=== PATIENT | male | born 1950 | race Caucasian/White ===

== ENCOUNTER 2022-03-29 14:54 | Outpatient (CLI) | payer OTHER, SELFPAY ==
--- NOTE | 2022-03-29 15:01 | MR_ITS ---
WS: [id number] MRI BRAIN WITH HIGH-RESOLUTION IMAGING THROUGH THE INTERNAL AUDITORY CANALS WITHOUT CONTRAST HISTORY: SENSORINEURAL HEARING LOSS BILATERAL COMPARISON: None available. TECHNIQUE: Multiplanar, multisequence imaging is performed through the brain. Additional 3 mm imaging performed in multiple planes through the internal auditory canal. Patient refused contrast. No acute intracranial hemorrhage, midline shift, edema or mass effect. Diffusion-weighted images are normal. Numerous scattered T2 and FLAIR signal hyperintensities through out the white matter in both the periventricular and subcortical distribution. Slightly greater white matter small vessel ischemic disease on the RIGHT. No prior infarct. Ventricles and extra-axial spaces are normal. No inferior displacement of cerebellar tonsils. Clivus and pituitary gland are normal. Internal and external auditory canals: Unremarkable. Cranial nerves VII and VIII complexes: No displacement or signal abnormality. Patient refused IV cont rast. Cerebellopontine angles and the 7th and 8th cranial nerve complexes are symmetric. Cerebellopontine angles: Normal limits unenhanced exam. Paranasal sinuses: Mild mucoperiosteal thickening throughout the frontal and frontal ethmoid recesses . No air-fluid levels. Mastoid air cells: Normal. Calvarium and scalp: Normal. As visualized no abnormalities. Flow voids are normal. MR/MR iac's wo con [id number] IMPRESSION: 1. No signal abnormalities noted at the cerebellopontine angles or involving t he 7th and 8th cranial nerve complexes. Patient refused IV contrast for this ex amination. 2. Moderate small vessel ischemic changes throughout the white matter, RIGHT g reater than LEFT. 3. No prior infarct. 4. Mild frontal and frontal ethmoid recess mucoperiosteal thickening.
== END 2022-03-29 14:55 | disposition home or self-care (01) ==
LOC: RAD 14:59
PROVIDERS: PCP Family Medicine; Visit Provider Specialist
DX: H90.3 Sensorineural hearing loss, bilateral (principal)
CPT/HCPCS: 70551

== ENCOUNTER → 2022-09-07 13:47 | Outpatient (BNVA) | payer OTHER, SELFPAY | PROVIDERS: PCP Family Medicine; Visit Provider Internal Medicine Cardiovascular Disease | DX: I10 Essential (primary) hypertension (principal); R94.31 Abnormal electrocardiogram [ECG] [EKG]; R07.89 Other chest pain; R06.02 Shortness of breath; R00.2 Palpitations | CPT/HCPCS: 99214 ==

== ENCOUNTER 2022-10-25 10:39 | Outpatient (CLI) | payer OTHER, SELFPAY ==
--- NOTE | 2022-10-25 11:00 | USCV_ITS ---
Chip Ej Age: 72 Gender: M : 1950 Exam Date: 10/25/2022 10:51 Ordering Phys: Lori Mcgovern MD ([email or web address]) Technologist: Felicitas Toro Exam Location: [facility] [place] Indication: CP, SOB, CHF BP: 149 / 92 HR: 55 Rhythm: Sinus Technical Quality: Adequate MEASUREMENTS (Male / Female) Normal Values 2D ECHO LV Diastolic Diameter PLAX 3.8 cm 4.2 - 5.9 / 3.9 - 5.3 cm LV Systolic Diameter PLAX 3.3 cm IVS Diastolic Thickness 1.2 cm 0.6 - 1.0 / 0.6 - 0.9 cm IVS Systolic Thickness 1.3 cm LVPW Diastolic Thickness 1.1 cm 0.6 - 1.0 / 0.6 - 0.9 cm LVPW Systolic Thickness 1.5 cm LVOT Diameter 1.4 cm LV Ejection Fraction 2D Teich 31.1 % LV Ejection Fraction MOD 2C 50.5 % LV Ejection Fraction 2C AL 53.1 % LA Diameter 3.1 cm LA Width 3.6 cm LA Height 4.2 cm RA Width 3.8 cm RA Height 4.6 cm Aorta at Sinotubular Diameter 3.3 cm IVC Diameter 1.6 cm M-MODE MV E Point Septal Separation 1.3 cm DOPPLER AV Peak Velocity 140.0 cm/s LVOT Peak Velocity 97.0 cm/s AV Area Cont Eq vti 1.0 cm squared AV Area Cont Eq pk 1.1 cm squared MV Peak Velocity 69.0 cm/s MV Area PHT 3.1 cm squared Mitral E to A Ratio 1.0 MV E' Velocity 31.0 cm/s Mitral E to MV E' Ratio 4.9 Mitral E to LV E' Lateral Ratio 3.8 Mitral E to LV E' Septal Ratio 6.9 PV Peak Velocity 79.0 cm/s RV Acceleration Time 0.1 s RV Ejection Time 0.3 s RV AcT/ET 0.3 FINDINGS Left Ventricle Normal left ventricular size and systolic function, EF 56 %. No regional wall motion abnormalities. Grade I/IV diastolic dysfunction (abnormal relaxation filling pattern), normal to mildly elevated filling pressures. Right Ventricle The right ventricle is normal in size and function. Right Atrium The right atrium is normal in size. Left Atrium The left atrium is normal in size. Mitral Valve No gross abnormalities noted Aortic Valve Thickened aortic valve. Tricuspid Valve No gross abnormalities noted Pulmonic Valve No gross abnormalities noted Pericardium Normal pericardium without effusion. Aorta Normal ascending aorta dimension. IVC The inferior vena cava appears normal. CONCLUSIONS Normal left ventricular size and systolic function, EF 56 %. No regional wall motion abnormalities. Grade I/IV diastolic dysfunction (abnormal relaxation filling pattern), normal to mildly elevated filling pressures. Thickened aortic valve. Normal cardiac chamber sizes. No significant valvular abnormalities. There is no pericardial effusion. There are no intracardiac masses. No similar previous studies are available for comparison Dr Lori Mcgovern MD FAC (Electronically Signed) Final Date: 25 October 2022 18:06 S
== END 2022-10-25 10:40 | disposition home or self-care (01) ==
PROVIDERS: PCP Family Medicine; Visit Provider Internal Medicine Cardiovascular Disease
DX: I35.8 Other nonrheumatic aortic valve disorders (principal); R06.09 Other forms of dyspnea
CPT/HCPCS: 93306

== ENCOUNTER → 2022-11-14 10:57 | Outpatient (BNVA) | payer OTHER, SELFPAY | PROVIDERS: PCP Family Medicine; Visit Provider Nurse Practitioner Family | DX: I10 Essential (primary) hypertension (principal); R06.02 Shortness of breath | CPT/HCPCS: 99214 ==

== ENCOUNTER 2022-12-11 09:07 | Outpatient (CLI) | payer OTHER, SELFPAY ==
--- NOTE | 2022-12-11 | ECG_ITS ---
[facility] Test Date: 2022-12-11 Pat Name: Ej Saunders Department: Room: Gender: Male Electrical Automation Engineer: Bridgette LottNavdeep : 1950 Requested By: Lori Mcgovern Order Number: [id number] Adonis MD: Gopi Kahn M.D. Interpretive Statements NAME OF STUDY: LEXISCAN SESTAMIBI STRESS TEST, patient unable to meet target HRon Exercise Mibi INDICATION: [UAP, ] Procedure: At the baseline, the blood pressure was 147/82 mmHg with a heart rate of 93 bpm. The electrocardiogram showed normal sinus rhythm, normal axis with normal ST and T's. The Lexiscan was infused over a period of 20 seconds. A total of 0.4 mg of Lexiscan was infused. The stress phase was continued for a total of 5 minutes. Heart rate was at the end of stress phase was 108 bpm and a blood pressure of 108/81 mmHg. The EKG at the peak infusion revealed normal sinus rhythm with no significant ST-T wave changes. Patient had frequent PVCs. Sestamibi was injected 20 seconds after the Lexiscan infusion. Blood pressure at the end of recovery phase was 133/80 mmHg with a heart rate of 89 bpm. Conclusion: 1. Normal EKG response to Lexiscan infusion 2. No Lexiscan induced chest pain. Frequent PVCs were noted on stress. 3. Normal blood pressure and heart rate response. 4. Sestamibi/sestamibi perfusion scan pending; see separate report. Electronically Signed On 01-06-2023 22:53:45 HOSPITAL TELEVISION RENTAL CLERK by Gopi Kahn M.D. [id number]
[2022-12-11 09:27] VITALS: BMI 22.1
--- NOTE | 2022-12-11 09:28 | NMCV_ITS ---
NM ludmila perf SPECT r/s* [id number] Ej Saunders Age: 72 Gender: M : 1950 Exam Date: 12/11/2022 10:23 Ordering Phys: Lori Mcgovern MD ([email or web address]) Technologist: JEAN PIERRE Guevara Exam Location: [facility] Indications: SHORTNESS OF BREATH STRESS TEST Please see separate stress test report in [facility] for full findings IMAGE PROTOCOL Rest/Stress 1 Lexiscan Day Radiopharmaceutical Dose (mCi) Administration Site Administered by Rest: Tc-99m 10.8 IV JEAN PIERRE Billy Sestamibi Stress:Tc-99m 32.9 IV JEAN PIERRE Billy Sestamibi Rest: 11-Dec-2022 60 Discovery 630 Stress: 11-Dec-2022 30 Discovery 630 0.4mg Lexiscan. Images obtained in supine and prone position. SPECT RESULTS Technical Quality: Excellent Raw Data Analysis: Normal Image Corrections: No attenuation or motion correction applied Summed Stress Score: 11 Summed Rest Score: 9 Summed Difference Score: 4 PERFUSION FINDINGS There is modereate sized, fixed perfusion defect noted in the apical and apical anterior wall. This is consistent with moderate sized prior infarct in the LAD territory. There is a large sized partially reversible, perfusion defect noted in the apical lateral and inferolateral anderson. This shows large area of prior infarct in the left circumflex artery territory with significant area of shant-infarct ischemia. FUNCTIONAL RESULTS (calculated via Gated SPECT) Stress Image LV EF (%): 70 Stress EDV (mL):103 TID: 1.23 Stress ESV (mL):31 FUNCTIONAL FINDINGS: There is normal left ventricular systolic function. Elevated TID ratio IMPRESSIONS 1. Abnormal myocardial perfusion imaging with medium sized area of prior infarct in the LAD territory. 2. Large area of prior infarct with significant area of shant-infarct ischemia in the left circumflex area territory. 3. LV systolic function is normal 4. Elevated TID ratio that can be secondary to subendocardial ischemia vs multivessel coronary artery disease Gopi Kahn MD (Electronically Signed) Final Date: 13 December 2022 17:11 S
[2022-12-11] MEDS: regadenoson 0.4 Mg/5 ml Syringe IVP (11:13)
[2022-12-11] MEDS: aminophylline 25 mg/mL SDV 10 mL IVP (11:17)
[2022-12-11 11:25] VITALS: BP 133/80; PULSE 92
== END 2022-12-11 09:08 | disposition home or self-care (01) ==
PROVIDERS: PCP Family Medicine; Visit Provider Internal Medicine Cardiovascular Disease
DX: R06.02 Shortness of breath (principal); I25.9 Chronic ischemic heart disease, unspecified
CPT/HCPCS: 36415; 78452; 96374; 96375; A9500; J0280; J2785

== ENCOUNTER → 2023-01-15 12:00 | Outpatient (BNVA) | payer OTHER, SELFPAY | PROVIDERS: PCP Family Medicine; Visit Provider Internal Medicine Cardiovascular Disease | DX: I10 Essential (primary) hypertension (principal); R93.1 Abnormal findings on diagnostic imaging of heart and coronary circulation; E78.5 Hyperlipidemia, unspecified; R00.2 Palpitations; R06.02 Shortness of breath | CPT/HCPCS: 36415; 80061; 80076; 99214 ==

== ENCOUNTER → 2023-03-28 08:26 | Outpatient (BNVA) | payer OTHER, SELFPAY | PROVIDERS: PCP Family Medicine; Referring Provider Family Medicine; Visit Provider Orthopaedic Surgery | DX: S46.912A Strain of unspecified muscle, fascia and tendon at shoulder and upper arm level, left arm, initial encounter (principal); X50.9XXA Other and unspecified overexertion or strenuous movements or postures, initial encounter | CPT/HCPCS: 73030; 99203 ==

== ENCOUNTER 2023-04-06 14:51 | Outpatient (CLI) | payer OTHER, SELFPAY ==
--- NOTE | 2023-04-06 15:15 | MR_ITS ---
WS: [id number] MRI LEFT SHOULDER HISTORY: pain COMPARISON: Radiograph 03/28/2023 TECHNIQUE: Multiplanar sequences of the shoulder joint are submitted. Moderate AC joint arthritis. Mild encroachment upon the supraspinatus tendon. Downsloping of the acro mion with severe subacromial impingement contacting the humeral head. Small subacromial and subdeltoi d bursal fluid distention. No os acromion. Normal biceps tendon. Complete tear of the supraspinatus tendon over the superior humeral head tear extends over a width of 8.60 m. Supraspinatus tendon is retracted to the superior medial humeral head. High riding humeral h ead abuts the undersurface of the acromion. Moderate atrophy of the supraspinatus muscle. Subscapular is tendon is intact although there is tendinopathy distally. Infraspinatus tendon appears intact. Moderate-sized joint effusion with a few small loose bodies within the effusion. Focal tear involving the anterior labrum. MR/MR shoulder LT con* [id number] IMPRESSION: 1. Complete tear supraspinatus tendon with retraction to the superior humeral head. Additional tendinopathy within the tendon. 2. Severe subacromial impingement abutting the humeral head at the site of the supraspinatus tendon tear. 3. Moderate supraspinatus muscle atrophy. 4. Mild distal subscapularis tendinopathy. 5. Moderate joint effusion with a few small loose bodies. 6. Mild AC joint arthritis.
== END 2023-04-06 14:52 | disposition home or self-care (01) ==
LOC: RAD 14:53
PROVIDERS: PCP Family Medicine; Visit Provider Orthopaedic Surgery
DX: M75.122 Complete rotator cuff tear or rupture of left shoulder, not specified as traumatic (principal); M62.512 Muscle wasting and atrophy, not elsewhere classified, left shoulder; M67.814 Other specified disorders of tendon, left shoulder; M25.412 Effusion, left shoulder; M19.012 Primary osteoarthritis, left shoulder
CPT/HCPCS: 73221

== ENCOUNTER → 2023-04-24 15:50 | Outpatient (BNVA) | payer OTHER, SELFPAY | PROVIDERS: PCP Family Medicine; Visit Provider Orthopaedic Surgery | DX: X50.9XXA Other and unspecified overexertion or strenuous movements or postures, initial encounter (principal); Y93.B2 Activity, push-ups, pull-ups, sit-ups; M75.102 Unspecified rotator cuff tear or rupture of left shoulder, not specified as traumatic; S46.912A Strain of unspecified muscle, fascia and tendon at shoulder and upper arm level, left arm, initial encounter | CPT/HCPCS: 99213 ==

== ENCOUNTER 2023-05-03 07:31 | Day surgery (SDC) | payer OTHER, SELFPAY ==
[2023-05-02 15:04] VITALS: BMI 22.1
[2023-05-03] VITALS (10 sets, daily range): BP systolic 97–133; BP diastolic 60–84; PULSE 53–61; RESP 16–18; TEMP 36.1–36.4; O2SAT 92–100
[2023-05-03] MEDS: sodium chloride 0.9% 1,000 ML 30 ML IV (08:06)
[2023-05-03] MEDS: gabapentin 300 mg Capsule PO (08:07)
[2023-05-03] MEDS: CELEcoxib 200 mg Capsule 400 MG PO (08:07)
[2023-05-03] MEDS: acetaminophen 500 mg Tablet 1000 MG PO (08:09)
[2023-05-03] MEDS: oxyCODONE 20 mg ER (12 HR) Tablet PO (08:10)
--- NOTE | 2023-05-03 08:46 | W.PM.OPSUD ---
Surgery/Procedure H&P Update DATE OF PROCEDURE: May 03, 2023 DATE H&P PERFORMED: 04/24/23 H&P UPDATE INFORMATION: I have reviewed H&P completed within last 30 days PREOP DIAGNOSIS: Rotator cuff tear left shoulder PLANNED PROCEDURE: Operation Date: 05/03/23 09:00 Proposed Procedures p arthroscopic left rotator cuff repair/ 06562,M75.102(Left) - Edmond Bird MD s Shoulder Arthroscopy(Left) - Edmond Bird MD
[2023-05-03] MEDS: ceFAZolin 2,000 MG in sodium chloride 0.9% (plus) 50 ML 100 MG IV (09:07)
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
--- NOTE | 2023-05-03 11:05 | P.OP_ITS ---
Operative Report Date of procedure: May 03, 2023 Pre-op diagnosis: Preop Diagnosis Rotator cuff tear and impingement left shoulder Post-op diagnosis: same Procedure done: Arthroscopic repair left rotator cuff, arthroscopic left subacromial decompression Implants: Crane and Nephew Helicoil 4.5 mm anchors x2 Pathology: none sent Surgeon: Edmond Bird Forming Machine Tender: Toan Hsieh Forming Machine Tender: The event marketing assistant was involved with critical portions of the case including manipulation and positioning of the patient. He assisted with the utilization of arthroscopic instruments of multiple portals and repair of this large rotator cuff tear. He provided closure of the wounds and applied postoperative immobilizer Anesthesia: General and Nerve Block (Interscalene) Estimated blood loss (mL): 10 Complications: None Findings: The patient had a very large delaminating tear of his right rotator which was approximately 2-1/2 cm from anterior to posterior with extension medial to the level of the glenoid. There is delamination of a superior and inferior flap of tissue medially. Overall rotator cuff tissue was reasonable. Bone quality was excellent. Additional spurring of the acromion, type II was identified. His biceps tendon was intact and healthy. No chondromalacia was identified over the humeral head or glenoid Condition: stable Disposition: PACU Brief History: The patient is a 73-year-old male who developed acute onset pain in his anterior shoulder 6 weeks ago while attempting to push himself up from the ground while working on his car. He had weakness of his rotator cuff suggestive of tearing which was confirmed on an MRI. He was taken to the operating room for repair of this traumatic tear to improve pain and function Procedure: The patient was taken to the operating room after he was given a interscalene block. He was given 2 g of Ancef. He was prepped and draped in the beachchair position with his left arm in 15 pounds of traction. A timeout was performed. The patient's shoulder was initially entered through a portal 2 cm inferior and medial to the posterior corner of the acromion. A scope cannula and trocar were driven in to the subacromial space. A lateral working portal was opened up with a scalpel blade. The glenohumeral arthroscopy could be performed through the cuff tear. No chondromalacia was then applied to the humeral head or glenoid. The biceps tendon appeared to be intact. The scope was then redirected to the subacromial space. A anterior working portal was identified with a spinal needle and opened up an 8 mm inflow cannula placed anteriorly. Additional cannula was placed through the lateral portal. The Crane and Nephew Werewolf cautery was used to remove bursal tissue and outlined the extent of the tear. Similarly, the leading edge of the acromion was outlined. Through the lateral portal a 5.5 mm acromionizer was introduced and approximately 5 mm of anterior inferior acromion removed to make room for the repair. Attention was then focused on the rotator cuff. The most medial portion of the tear seem to be more of a delaminating pattern. With a U-shaped split at the apex of all of the most superficial cuff and a more retracted crescent type inferior cuff. At a point just lateral to the repair a Crane and [employer] FirstPass suture passer was used to the anterior portal to shuttle a tape through the posterior U-shaped superior flap. The inferior suture was then retrieved through the anterior portal and that same suture passer used to pass it through the lateral edge of the inferior flap. A sharp BirdBeak suture retriever was then passed through the anterior superior U-shaped tissue and retrieved out through the anterior portal. This suture was secured to the lateral portal closing the apex of the tear and an inferior delaminated portion of the tear together. The Crane and Nephew FirstPass suture passer was then used to shuttle a second tape through the posterior rotator cuff approximately a centimeter laterally in a similar fashion this was retrieved with the BirdBeak through the anterior flap. This was secured as well further converging the rotator cuff. This left us with approximately 2-1/2 cm tear from anterior to posterior with approximately a centimeter and a half of tendinous retraction. The footprint was then debrided with incisor shaver. Through a lateral stab wound 4.5 mm anchor was placed in the posterior lateral footprint. The Crane and Nephew FirstPass suture passer was used to shuttle each tape suture through the posterior rotator cuff approximately 6 mm from its edge, with the sutures 5 mm apart. A second anchor was placed in the anterior lateral footprin and the ends of that suture passed in identical fashion.. Both suture anchor sutures were secured drawing the rotator cuff down to the tuberosity laterally. The shoulder was irrigated with saline. The repair was probed and found to be stable. Arthroscopy was removed. Portals were closed with 3-0 Prolene. Sterile dressings were applied. The patient was placed in abduction pillow. He was extubated and taken to recovery in stable condition.
--- NOTE | 2023-05-03 16:33 | ANE.PACU2 ---
Inpatient post-anesthesia follow up: Airway intact: Yes Vital signs: Temperature 97.6 F Pulse Rate 60 Respiratory Rate 18 Blood Pressure 132/84 Pulse Oximetry 98 Oxygen Delivery Me thod Room Air Oxygen Flow Rate 6 Fraction of Inspir ed Oxygen Hydration adequate: Yes Nausea and vomiting: No Pain level: 1 Mental status: Baseline
== END 2023-05-03 12:20 | disposition home or self-care (01) ==
PROVIDERS: PCP Family Medicine; Visit Provider Orthopaedic Surgery
PROC: 0LQ24ZZ Repair Left Shoulder Tendon, Percutaneous Endoscopic Approach (ICD-10-PCS; CPT 29827; principal; 2023-05-03 08:50)
PROC: (CPT 29805; 2023-05-03 08:50)
DX: M75.102 Unspecified rotator cuff tear or rupture of left shoulder, not specified as traumatic (principal); J44.9 Chronic obstructive pulmonary disease, unspecified; I10 Essential (primary) hypertension; E78.00 Pure hypercholesterolemia, unspecified; Z79.82 Long term (current) use of aspirin; Z88.5 Allergy status to narcotic agent
CPT/HCPCS: 29827; C1713; J0690; J1100; J2370; J2405; J2704; J2710; J2795; J3010; J3490; J7030

== ENCOUNTER → 2023-05-14 15:06 | Outpatient (BNVA) | payer OTHER, SELFPAY | PROVIDERS: PCP Family Medicine; Visit Provider Internal Medicine Cardiovascular Disease | DX: R93.1 Abnormal findings on diagnostic imaging of heart and coronary circulation (principal); R06.02 Shortness of breath; E78.00 Pure hypercholesterolemia, unspecified; I10 Essential (primary) hypertension | CPT/HCPCS: 99214 ==

== ENCOUNTER → 2023-05-21 13:03 | Outpatient (BNVA) | payer OTHER, SELFPAY | PROVIDERS: PCP Family Medicine; Visit Provider Nurse Practitioner Family | DX: Z98.890 Other specified postprocedural states (principal) | CPT/HCPCS: 99024 ==

== ENCOUNTER 2023-06-14 12:51 | Outpatient (RCR) | payer OTHER, SELFPAY | END 2023-07-12 23:59 | disposition home or self-care (01) | LOC: SPT 12:51 | PROVIDERS: Visit Provider Nurse Practitioner Family | DX: Z47.89 Encounter for other orthopedic aftercare (principal) | CPT/HCPCS: 97110; 97161; 97530 ==

== ENCOUNTER → 2023-06-25 08:38 | Outpatient (BNVA) | payer OTHER, SELFPAY | PROVIDERS: Visit Provider Nurse Practitioner Family | DX: Z98.890 Other specified postprocedural states (principal) | CPT/HCPCS: 99213 ==

== ENCOUNTER 2023-07-13 06:00 | Outpatient (RCR) | payer OTHER, SELFPAY | END 2023-08-11 23:59 | disposition home or self-care (01) | LOC: SPT 06:00 | PROVIDERS: Visit Provider Nurse Practitioner Family | DX: Z98.890 Other specified postprocedural states (principal) | CPT/HCPCS: 97110 ==

== ENCOUNTER → 2023-08-09 08:08 | Outpatient (BNVA) | payer OTHER, SELFPAY | PROVIDERS: Visit Provider Physician Assistant | DX: Z98.890 Other specified postprocedural states (principal) | CPT/HCPCS: 99213 ==

== ENCOUNTER 2023-08-12 06:00 | Outpatient (RCR) | payer OTHER, SELFPAY | END 2023-08-14 23:59 | disposition home or self-care (01) | LOC: SPT 06:00 | PROVIDERS: Visit Provider Nurse Practitioner Family | DX: Z98.890 Other specified postprocedural states (principal) | CPT/HCPCS: 97110 ==

== ENCOUNTER 2023-09-19 16:52 | Emergency (ER) | payer OTHER, SELFPAY ==
--- NOTE | 2023-09-19 17:01 | XRR_ITS ---
PROCEDURE INFORMATION: Exam: XR Chest Exam date and time: 09/19/2023 5:17 PM Age: 73 years old Clinical indication: Shortness of breath; Additional info: SOB TECHNIQUE: Imaging protocol: Radiologic exam of the chest. Views: 1 view. COMPARISON: DX XR chest 2V* [id number] 09/15/2022 10:08 AM FINDINGS: Lungs: Stable fullness of the right hilum with prior exam 2021 and 2018. When correlated with previous two-view chest suggestion of underlying COPD/emphysema change. No focal infiltrate or consolidation. Pleural spaces: No significant pleural effusion or pneumothorax. Suggestion of skin fold on the right. Heart/Mediastinum: Cardiac size is within normal limits. Bones/joints: Chronic bony changes thoracic spine including prior vertebroplasty in a mid to lower thoracic vertebra. Other findings: No significant change with prior exam. XR/XR chest 1V portable [id number] IMPRESSION: Single-view chest appears stable with previous exam as noted above. Suggestion of skin fold on the right. No acute findings.
--- NOTE | 2023-09-19 17:01 | ECG_ITS ---
[facility] Test Date: 2023-09-19 Pat Name: Ej Saunders Department: Room: Gender: Male Rn Observation: : 1950 Requested By: Ren Mccann Order Number: [id number] Adonis MD: Lori Mcgovern M.D. Measurements Intervals [place] Rate: 70 P: 76 MT: 125 QRS: 55 QRSD: 78 T: 60 QT: 403 QTc: 436 Interpretive Statements SINUS RHYTHM NONSPECIFIC T-WAVE ABNORMALITY Compared to ECG 03/22/2015 01:01:27 T-wave abnormality now present Sinus tachycardia no longer present Electronically Signed On 09-20-2023 0:44:21 HAND EDGER by Lori Mcgovern M.D. [id number]
[2023-09-19 17:04] VITALS: PULSE 82; RESP 17; TEMP 36.8; O2SAT 98; BMI 23.6
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
[2023-09-19 17:29] LABS: Basophils % 0.2 %; Eosinophils # 0.1 10^3/uL (0.0-0.8); Eosinophils % 1.3 %; Hematocrit 45.2 % (37-53); Lymphocytes # 1.1 10^3/uL (0.8-4.8); Mean Corpuscular HGB Conc 33.2 g/dL (30-55); Mean Corpuscular Hemoglobin 31.2 pg (27-33); Mean Platelet Volume 9.9 fL (7.4-10.4); Monocytes # 1.2 10^3/uL (0.2-0.9); Monocytes % 12.3 %; Nucleated Red Blood Cells % 0 %; Platelet Count 255 10^3/cmm (157-399); Red Blood Count 4.81 10^6/uL (3.85-5.65); Red Cell Distribution Width 14.2 % (12.1-15.1); White Blood Count 10.12 10^3/uL (3.29-11.43)
[2023-09-19] MEDS: ipratropium-albuterol 3 mL Neb INHALATION (17:39)
[2023-09-19 17:45] LABS: Influenza A by IFA negative (Negative); Influenza B by IFA negative (Negative)
[2023-09-19 17:46] LABS: SARS Covid-2 Antigen negative (Negative)
[2023-09-19 17:50] LABS: INR 1.01 (0.8-1.2)
[2023-09-19] MEDS: dexamethasone 10 mg/mL INJ IVP (17:57)
[2023-09-19] MEDS: magnesium sulfate premix 1 GM/100 ML PIGGYBACK IV (17:58)
[2023-09-19 18:16] LABS: Alanine Aminotransferase 20 U/L (0-41); Albumin Level 4.4 g/dL (3.5-5.2); Alkaline Phosphatase 114 U/L (40-130); Anion Gap 17.3 (5-19); Aspartate Amino Transferase 22 U/L (0-40); Blood Urea Nitrogen 14 mg/dL (8-23); Calcium 9.5 mg/dL (8.5-10.5); Carbon Dioxide 26 mmol/L (22-29); Chloride 101 mmol/L (98-107); Glucose 107 mg/dL (65-115); NT Pro B Type Natriuretic Pept 331 pg/mL (0-125); Osmolality Calculated 293 mOsm/kg (285-295); Potassium 3.3 mmol/L (3.5-5.1); Sodium 141 mmol/L (136-145); Total Bilirubin 0.4 mg/dL (0.15-1.2); Total Protein 7.4 g/dL (6.6-8.7)
[2023-09-19 18:38] VITALS: BP 129/75; O2SAT 99
[2023-09-19] MEDS: doxycycline 100 mg Tablet PO (18:56)
== END 2023-09-19 18:59 | disposition home or self-care (01) ==
PROVIDERS: Emergency Medicine; Emergency Provider Nurse Practitioner Family; PCP Family Medicine
DX: J44.1 Chronic obstructive pulmonary disease with (acute) exacerbation (principal); Z11.52 Encounter for screening for COVID-19; Z85.118 Personal history of other malignant neoplasm of bronchus and lung; Z86.19 Personal history of other infectious and parasitic diseases; I10 Essential (primary) hypertension
CPT/HCPCS: 71045; 80053; 83880; 85025; 85610; 87426; 87804; 93005; 96365; 96375; 99285; J1100; J3475

== ENCOUNTER → 2023-11-13 08:15 | Outpatient (BNVA) | payer OTHER, SELFPAY | PROVIDERS: PCP Family Medicine; Visit Provider Student in an Organized Health Care Education/Training Program | DX: Z98.890 Other specified postprocedural states (principal) | CPT/HCPCS: 99213 ==

== ENCOUNTER → 2023-11-22 09:33 | Outpatient (BNVA) | payer OTHER, SELFPAY | PROVIDERS: PCP Family Medicine; Visit Provider Internal Medicine Cardiovascular Disease | DX: R93.1 Abnormal findings on diagnostic imaging of heart and coronary circulation (principal); Z13.6 Encounter for screening for cardiovascular disorders; E78.00 Pure hypercholesterolemia, unspecified; I10 Essential (primary) hypertension; R00.2 Palpitations; R06.09 Other forms of dyspnea; Z87.891 Personal history of nicotine dependence | CPT/HCPCS: 99214 ==

== ENCOUNTER 2023-12-10 09:25 | Outpatient (CLI) | payer OTHER, SELFPAY ==
--- NOTE | 2023-12-10 09:45 | USCV_ITS ---
Ej Saunders Age: 73 Gender: M : 1950 Exam Date: 12/10/2023 09:57 Ordering Phys: Lori Mcgovern MD ([email or web address]) Technologist: Exam Location: [facility] [place] Indication: AAA screen HISTORY: Diameter (cm) AP x Transverse x Length Velocity (cm/s) Waveform Prox Aorta: 2.02 x 2.04 x 61.50 Mid Aorta: 1.19 x 1.35 x 50.10 Distal Aorta: 1.29 x 1.29 x 40.00 Right Iliac Prox: 0.53 x 0.50 x 116.40 Left Iliac Prox: 0.66 x 0.66 x 94.30 Stent Prox Landing x x Aneurysmal Sac Max x x Lt Lat Sac Dim Rt Lat Sac Dim Stent Dist Landing x x Right Iliac Stent x x Left Iliac Stent x x Right Renal Art Left Renal Art FINDINGS: Mild to moderate diffuse plaques in the abdominal aorta Normal abdominal aortic dimensions Normal iliac artery dimensions Normal Doppler flow velocities CONCLUSIONS No evidence of abdominal aortic aneurysm Mild to moderate diffuse plaque in the abdominal aorta Normal proximal common iliac artery dimensions Dr Lori Mcgovern MD [facility] (Electronically Signed) Final Date: 10 December 2023 19:21 S
== END 2023-12-10 09:26 | disposition home or self-care (01) ==
LOC: RAD 09:25
PROVIDERS: PCP Family Medicine; Visit Provider Internal Medicine Cardiovascular Disease
DX: Z13.6 Encounter for screening for cardiovascular disorders (principal); F17.210 Nicotine dependence, cigarettes, uncomplicated; I70.0 Atherosclerosis of aorta
CPT/HCPCS: 93978

== ENCOUNTER 2024-05-08 09:39 | Outpatient (CLI) | payer OTHER, SELFPAY ==
--- NOTE | 2024-05-08 09:45 | CT_ITS ---
WS: [id number] CT chest w con* [id number] HISTORY: FOLLOW UP ON ABNORMAL CT DIAGNOSTITIC TECHNIQUE: Axial imaging performed through the thorax. Coronal and sagittal reformats are submitted. All CT scans at [facility] use at least one of these dose optimization techniques: automated exposure control; mA and/or kV adjustment per patient size (includes targeted exams where dose is mat ched to clinical indication); or iterative reconstruction. CONTRAST: Omnipaque 350; 100 mL IV. DLP: 237.94 mGy.cm COMPARISON: 08/22/2022 Lungs and central airway: Hyperexpanded lungs. Status post bilateral upper lobectomies. Focal area of groundglass attenuation with scarring at the LEFT apex. There is an additional subsolid nodule measu ring 6 mm, image 20 series 4 on the LEFT which was also present in 2021. Subtle area of groundglass a ttenuation in the anterior RIGHT middle lobe has slightly improved. Pleura: Normal. No pleural effusion. Heart and pericardium: Normal size heart with no pericardial effusion. Mediastinum and lacey: No mediastinum or hilar adenopathy. Vessels: Atherosclerosis aorta. Mildly dilated pulmonary artery. Chest wall and lower neck: Mild gynecomastia. Upper abdomen: Small hiatal hernia. Cortical cyst LEFT kidney 1.2 cm. Osseous structures: Increase in thoracic kyphosis. T10 vertebroplasty. Severe compression fracture T7 is chronic. CT/CT chest w con* [id number] IMPRESSION: 1. Status post bilateral upper lobectomies. 2. Stable areas of groundglass attenuation since 2021 as described above. No n ew mass or nodule. No pneumonia. 3. Atherosclerosis aorta. 4. No mediastinal or hilar adenopathy.
[2024-05-08] MEDS: iohexol 350 mg/mL 500 mL Btl (per mL) IV (10:19)
== END 2024-05-08 09:40 | disposition home or self-care (01) ==
LOC: RAD 09:39
PROVIDERS: PCP Family Medicine; Visit Provider Family Medicine
DX: R91.1 Solitary pulmonary nodule (principal); J98.4 Other disorders of lung; M40.204 Unspecified kyphosis, thoracic region; K44.9 Diaphragmatic hernia without obstruction or gangrene; N28.1 Cyst of kidney, acquired; Z90.2 Acquired absence of lung [part of]; I70.0 Atherosclerosis of aorta
CPT/HCPCS: 71260; Q9967

== ENCOUNTER → 2024-05-21 11:45 | Outpatient (BNVA) | payer OTHER, SELFPAY | PROVIDERS: PCP Family Medicine; Visit Provider Internal Medicine Cardiovascular Disease | DX: R93.1 Abnormal findings on diagnostic imaging of heart and coronary circulation (principal); E78.00 Pure hypercholesterolemia, unspecified; I10 Essential (primary) hypertension; R06.09 Other forms of dyspnea; F17.210 Nicotine dependence, cigarettes, uncomplicated | CPT/HCPCS: 99214 ==

== ENCOUNTER 2024-06-03 18:33 | Emergency (ER) | payer OTHER, SELFPAY ==
[2024-06-03 18:38] VITALS: BP 147/84; PULSE 86; RESP 16; TEMP 36.8; O2SAT 97
--- NOTE | 2024-06-03 19:22 | XRR_ITS ---
PROCEDURE INFORMATION: Exam: XR Chest Exam date and time: 06/03/2024 7:33 PM Age: 74 years old Clinical indication: Injury or trauma; Other: Hurt lt ribs; Blunt trauma (contusions or hematomas); Prior surgery; Surgery date: 6+ months; Surgery type: Mike lungs; Additional info: Left rib pain TECHNIQUE: Imaging protocol: Radiologic exam of the chest. Views: 1 view. COMPARISON: CT chest w con* [id number] 05/08/2024 10:06 AM FINDINGS: Lungs: Unremarkable. No consolidation. Pleural spaces: Unremarkable. No pleural effusion. No pneumothorax. Heart/Mediastinum: Unremarkable. No cardiomegaly. Bones/joints: Changes of prior thoracotomy. XR/XR chest 1V portable [id number] IMPRESSION: No acute findings.
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
[2024-06-03] MEDS: amoxicillin-clav 875-125 mg Tablet 1 TAB PO (19:37)
[2024-06-03] MEDS: tetanus-dipt-pertussis 0.5 mL SDV IM (19:38)
[2024-06-03 20:16] VITALS: BP 147/84; PULSE 86; RESP 16; TEMP 36.8; O2SAT 97
== END 2024-06-03 20:17 | disposition home or self-care (01) ==
PROVIDERS: Emergency Provider Physician Assistant; PCP Family Medicine
DX: S61.451A Open bite of right hand, initial encounter (principal); W54.0XXA Bitten by dog, initial encounter; Z87.891 Personal history of nicotine dependence; J44.9 Chronic obstructive pulmonary disease, unspecified; I10 Essential (primary) hypertension; Z86.19 Personal history of other infectious and parasitic diseases; Z85.118 Personal history of other malignant neoplasm of bronchus and lung; Z23 Encounter for immunization
CPT/HCPCS: 71045; 90471; 90715; 99283

== ENCOUNTER → 2024-11-19 08:57 | Outpatient (BNVA) | payer OTHER, SELFPAY | PROVIDERS: PCP Family Medicine; Visit Provider Nurse Practitioner Family | DX: R93.1 Abnormal findings on diagnostic imaging of heart and coronary circulation (principal); E78.00 Pure hypercholesterolemia, unspecified; I10 Essential (primary) hypertension; R06.09 Other forms of dyspnea; Z87.891 Personal history of nicotine dependence | CPT/HCPCS: 99213 ==

== ENCOUNTER 2025-04-24 10:08 | Emergency (ER) | payer OTHER, MEDICARE, SELFPAY ==
[2025-04-24 10:26] VITALS: BP 124/78; PULSE 59; RESP 18; TEMP 36.7; O2SAT 98; BMI 19.2
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
[2025-04-24 11:32] VITALS: BP 139/96; PULSE 51; RESP 16; O2SAT 100
--- NOTE | 2025-04-24 12:05 | PC.PHAR ---
Addendum entered by [employer] 04/24/25 12:05: Pt states he takes most of his medications at night. Original Note: [facility] presented a current list printed from the clinic today.
--- NOTE | 2025-04-27 07:34 | DCPLANNER ---
messaged gen surg for er f/u
== END 2025-04-24 11:59 | disposition home or self-care (01) ==
PROVIDERS: Emergency Provider Physician Assistant; PCP Family Medicine
DX: K46.9 Unspecified abdominal hernia without obstruction or gangrene (principal); Z87.891 Personal history of nicotine dependence; J44.9 Chronic obstructive pulmonary disease, unspecified; Z85.46 Personal history of malignant neoplasm of prostate; Z85.118 Personal history of other malignant neoplasm of bronchus and lung
CPT/HCPCS: 99282

== ENCOUNTER → 2025-05-08 09:11 | Outpatient (BNVA) | payer OTHER, SELFPAY | PROVIDERS: PCP Family Medicine; Visit Provider Student in an Organized Health Care Education/Training Program | DX: K46.9 Unspecified abdominal hernia without obstruction or gangrene (principal) | CPT/HCPCS: 99203 ==

== ENCOUNTER → 2025-05-26 15:45 | Outpatient (BNVA) | payer OTHER, SELFPAY | PROVIDERS: PCP Family Medicine; Visit Provider Internal Medicine Cardiovascular Disease | DX: R06.09 Other forms of dyspnea (principal); R93.1 Abnormal findings on diagnostic imaging of heart and coronary circulation; E78.00 Pure hypercholesterolemia, unspecified; I10 Essential (primary) hypertension; Z87.891 Personal history of nicotine dependence | CPT/HCPCS: 99214 ==